=== PATIENT | female | born 1990 ===

== ENCOUNTER 2021-03-17 09:45 | Inpatient (IN) | payer OTHER ==
[~2021-03-17] VITALS: Ht 160 cm; Wt 100.7 kg
== END 2021-03-29 09:17 | disposition home or self-care (01) | DRG 741 ==
LOC: OB/GYN 03-24 16:26 → SURH 03-27 09:45 → OB/GYN 03-29 09:17
PROVIDERS: Obstetrics & Gynecology Gynecologic Oncology; ADMIT Internal Medicine; ATTEND Internal Medicine
PROC: 30233N1 Transfusion of Nonautologous Red Blood Cells into Peripheral Vein, Percutaneous Approach (ICD-10-PCS; 2021-03-25)
PROC: 0UB74ZZ Excision of Bilateral Fallopian Tubes, Percutaneous Endoscopic Approach (ICD-10-PCS; 2021-03-27)
PROC: 07BC4ZX Excision of Pelvis Lymphatic, Percutaneous Endoscopic Approach, Diagnostic (ICD-10-PCS; 2021-03-27)
PROC: 0UT94ZZ Resection of Uterus, Percutaneous Endoscopic Approach (ICD-10-PCS; principal; 2021-03-27 15:10)
DX: D06.0 Carcinoma in situ of endocervix (principal); D28.2 Benign neoplasm of uterine tubes and ligaments; R59.0 Localized enlarged lymph nodes; D50.0 Iron deficiency anemia secondary to blood loss (chronic); N93.8 Other specified abnormal uterine and vaginal bleeding